=== PATIENT | male | born 1970 | race Two or more races ===

== ENCOUNTER 2022-01-14 17:25 | Emergency (ER) | payer SELFPAY ==
[~2022-01-14] VITALS: Ht 165.1 cm; Wt 77.1 kg
[2022-01-14] MEDS ORDERED: IV NS 0.9% 1,000 ML BAG IV ONE (17:30)
--- NOTE | 2022-01-14 17:30 | NUR ---
RECEIVED PT 51 YRS MALE CAME BY [facility] IN CARE FOR HOURS SKIN HOT AND DENIS NONE VERBLE NO FALLOY ANY COMMED SKIN CLEAN AND INTACT
--- NOTE | 2022-01-14 17:39 | NUR ---
DR LANE AT BEDSIDE FOR EVAL
--- NOTE | 2022-01-14 17:46 | NUR ---
URINE SAMPLE COLLECTED AND SENT TO LAB. IV LINE ESTABLISHED ON RAC #[id number], BLOOD DRAWN AND SENT TO LAB.
[2022-01-14 17:52] LABS: BASOPHILS # (AUTO) 0.1 K/uL (0.0-0.2); BASOPHILS % (AUTO) 0.9 % (0.0-2.0); EOSINOPHILS % (AUTO) 2.6 % (0.0-6.0); HEMATOCRIT 43 % (39-51); HEMOGLOBIN 14.2 g/dL (13.5-17.5); LYMPHOCYTES % (AUTO) 28.8 % (20.0-44.0); MEAN CORPUSCULAR HGB CONC 33 g/dl (31.0-36.0); MEAN CORPUSCULAR VOLUME 90 fL (80-96); MONOCYTES # (AUTO) 0.2 K/uL (0.1-1.30); MONOCYTES % (AUTO) 2.5 % (2.0-12.0); NEUTROPHILS # (AUTO) 4.6 K/uL (1.8-8.9); NEUTROPHILS % (AUTO) 65.2 % (43.0-81.0); PLATELET COUNT (AUTO) 218 K/uL (150-450); RED BLOOD CELL COUNT(AUTO) 4.73 MIL/uL (4.5-6.0)
[2022-01-14 18:11] LABS: CALCIUM, SERUM 8.1 mg/dL (8.5-10.1); CARBON DIOXIDE 23 mmol/L (21-32); CHLORIDE 107 mmol/L (98-107); CREATININE 0.8 mg/dL (0.6-1.3); GLUCOSE 134 mg/dL (74-106); POTASSIUM 3.5 mmol/L (3.5-5.1); SODIUM SERUM 143 mmol/L (136-145); UREA NITROGEN, BLOOD 7 mg/dL (7-18)
[2022-01-14 18:28] LABS: ALANINE AMINOTRANSFERASE 60 U/L (12-78); ALBUMIN 3.1 g/dL (3.4-5.0); ALCOHOL, BLOOD 363 mg/dL (0-0); ALKALINE PHOSPHATASE 119 U/L (46-116); ASPARTATE AMINOTRANSFERASE 58 U/L (15-37); BILIRUBIN,DIRECT 0.1 mg/dL (0.0-0.2); BILIRUBIN,TOTAL 0.4 mg/dL (0.2-1.0); TOTAL PROTEIN, SERUM 7.5 g/dL (6.4-8.2)
[2022-01-14 18:29] LABS: ACETAMINOPHEN < 10 ug/ml (10-30)
[2022-01-14 18:30] LABS: CREATINE KINASE, TOTAL 52 U/L (39-308)
--- NOTE | 2022-01-14 18:30 | NUR ---
CONTEDANNA LICEA OBSEVE PT
[2022-01-14 18:55] LABS: BILIRUBIN,URINE NEGATIVE (NEGATIVE); COLOR,URINE YELLOW (YELLOW); LEUKOCYTE ESTERASE ,URINE NEGATIVE (NEGATIVE); NITRITE, URINE NEGATIVE (NEGATIVE); PH,URINE 5.5 (5.0-8.0); PROTEIN,URINE NEGATIVE (NEGATIVE); UGLUCOSE NEGATIVE (NEGATIVE); UROBILINOGEN,URINE 0.2 EU/dL (0.2)
--- NOTE | 2022-01-14 19:34 | NUR ---
HAND OFF TO NOBLE JASSO
--- NOTE | 2022-01-15 05:10 | NUR ---
Patient discharged to home in stable condition. Written and verbal after care instructions given. Patient verbalizes understanding of instruction.
[2022-01-15 05:11] VITALS: BP 131/77
== END 2022-01-15 05:38 | disposition home or self-care (01) ==
LOC: ER 17:56 → EDBD 17:56 → ER 01-15 05:38
DX: F10.129 Alcohol abuse with intoxication, unspecified (principal); R47.81 Slurred speech; R40.0 Somnolence; Y90.8 Blood alcohol level of 240 mg/100 ml or more
CPT/HCPCS: 99285; 96360; 96361; 85025; 80048; 82550; 80076; 81003; 36415; 80143; 80320; 80307; J7030; A6253; G0480